=== PATIENT | male | born 2005 | race Caucasian/White ===

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

== ENCOUNTER 2024-12-15 08:46 | Outpatient (CLI) | payer OTHER, SELFPAY ==
--- NOTE | ~2024-12-15 | XR_ITS ---
PA, oblique, and lateral views of the right third finger Clinical history: Injury FINDINGS: There is small acute avulsion fracture from the radial aspect of the base of the third midd le phalanx, which is mildly displaced. No other fracture or dislocation seen. Joint spaces are grossl y preserved. There is mild soft tissue swelling about the fracture site. IMPRESSION: Small acute avulsion fracture at the radial aspect of the base of the third middle phalanx. Reviewed, dictated and finalized at location . IMPRESSION: Small acute avulsion fracture at the radial aspect of the base of the third mid dle phalanx.
--- OUTSIDE RECORDS SUMMARY | 2024-12-15 08:51 | XMS_ITS | Clinical Summary ---
Author Organization [facility] Address [facility] [place] [address] Care Team Providers Care Clay Press Operator Name Role Phone Kylah Salvador MD Primary Care Provider [phone] Twin Mckeon MD Unavailable [phone] Allergies No known active allergies Medications No known medications Active Problems No known active problems Immunizations Immunization Administration Dates Next Due Dtap (Generic) 06/23/2009,09/02/2005 HPV GARDASIL 9-VALENT 12/01/2017,01/19/2016 Hepatitis A 06/16/2007,12/13/2005 Hib 09/02/2005,2004,2004 MENINGOCOCCAL A C Y&W-135 oligosaccharide (MENVEO) 01/19/2016 MMR 06/23/2009,06/12/2005 Menactra 02/26/2021 Pediarix 2004,2004,2004 Pneumococcal (Prevnar 7) 06/12/2005,10/2004,2004,06/2004 Polio Ipv (Generic) 06/23/2009 Tdap (Generic) 01/19/2016 Varicella Vaccine 06/23/2009,06/12/2005 Family History Medical History Relation Comments No Known Problems Father No Known Problems Mother Relation Status Comments Father Alive Mother Alive Social History Tobacco Use Types Packs/Day Years Used Date Smoking Tobacco: Never Smokeless Tobacco: Never Tobacco Cessation:Counseling Given: No Alcohol Use Standard Drinks/Week Comments Never 0 (1 standard drink = 0.6 oz pur e alcohol) AUDIT-C Answer Date Recorded Q1: How often do you have a drink containing alc ohol? Never 07/27/2020 Average Number of Drinks Not on file 021 Frequency of Binge Drinking Not on file 07/10 PHQ-2 Answer Date Recorded PHQ-2 Score - If the patient scores above 3, please move on to questions 3-9 0 03/09/2021 Sex and Gender Information Value Date Recorded Sex Assigned at Not on file Legal Sex Male 5:43 PM CDT Gender Identity Not on file Sexual Orientation Not on file Last Filed Vital Signs Vital Sign Reading Time Taken Comments Blood Pressure 136/85 04/06/2022 10:08 AM CDT Pulse 75 04/06/2022 10:08 AM CDT Temperature 36.2 C (97.2 F) 04/06/2022 10:08 AM CDT Respiratory Rate 20 04/06/2022 10:08 AM CDT Oxygen Saturation 99% 04/06/2022 10:08 AM CDT Inhaled Oxygen Concentration - - Weight 88 kg (194 lb) 04/06/2022 10:08 AM CDT Height 177.8 cm (5' 10) 04/06/2022 10:08 AM CDT Body Mass Index 27.84 04/06/2022 10:08 AM CDT Plan of Treatment Health Maintenance Due Date Last Done Comments Annual Physical 2007 Meningococcal B Vaccine (1 of 2 - Standard) 2020 Hepatitis C 2022 COVID-19 Vaccine ( - season) 2024 DTaP, Tdap and Td Vaccines (7 - Td or Tdap) 01/18/2026 01/19/2016, 06/23/2009, 09/02/2005, Additional history exists Hepatitis B Vaccines Completed 2004, 2004, 2004 Pneumococcal Vaccine: Pediatrics (0 to 5 Years) and At-Risk Patients (6 to 49 Years) Aged Out 06/12/2005, 2004, 2004, Additional history exists No longer eligible based on patient's age to complete this topic HPV Vaccines Completed 12/01/2017, 01/19/2016 Meningococcal Vaccine Completed 02/26/2021, 016 RSV Immunizations Under 20 Months Aged Out No longer eligible based on patient's age to complete this topic Insurance [employer] Care Teams Clay Press Operator Relationship Specialty Start Date End Date Kylah Salvador MD [address] [facility] [address] [place] [address] PCP - General PEDIATRICS 03/19/22 Twin Mckeon MD [address] [address] FAMILY PRACTICE 03/19/22
--- OUTSIDE RECORDS SUMMARY | 2024-12-15 08:51 | XMS_ITS | Clinical Summary ---
Author Organization [facility] Address [address] [place] [address] Care Team Providers Care Trash Collector Truck Driver Name Role Phone Kylah Salvador MD Primary Care Provider [phone] Source Comments [facility],non-owned Affiliates and Associated Physician Practices is amultiple site organization consisting of ambulatory clinics and hospital sitesin [place], [place], [place] and [place]. This disclosure is being madepursuant to the Care Everywhere program and may not contain all information available regarding this patient. Last updated 18.[facility] Allergies No known active allergies Medications * Be aware that medications may not be up to date on this document. Alwaysverify current medications with the patient. No known medications Active Problems Patient Care Coordination No te Formatting of this note migh t be different from the original. Do you have any cultural preferences or concerns? No 03/26/22 Problem Noted Date Diagnosed Date Closed nondisplaced fracture of shaft of second metacarpal bone of left hand 04/08/2022 Closed displaced fracture of proximal phalanx of left index finger 04/08/2022 Closed displaced fracture of proximal phalanx of left middle finger 04/08/2022 Closed fracture of nasal bone 03/26/2022 Social History Tobacco Use Types Packs/Day Years Used Date Smoking Tobacco: Never Smokeless Tobacco: Never Tobacco Cessation:Counseling Given: Not Answered Alcohol Use Standard Drinks/Week Comments Never 0 (1 standard drink = 0.6 oz pur e alcohol) Sex and Gender Information Value Date Recorded Sex Assigned at Not on file Legal Sex Male 8:20 AM CDT Gender Identity Not on file Sexual Orientation Not on file Last Filed Vital Signs Vital Sign Reading Time Taken Comments Blood Pressure - - Pulse - - Temperature - - Respiratory Rate - - Oxygen Saturation - - Inhaled Oxygen Concentration - - Weight 85.9 kg (189 lb 6 oz) 01/16/2023 12:50 PM CDT Height 178 cm (5' 10.08) 12/09/2022 10:06 AM CD T Body Mass Index 27.11 12/09/2022 10:06 AM CDT Plan of Treatment Health Maintenance Due Date Last Done Comments HIV SCREENING 2019 HPV VACCINE (1 - Male 3-dose series) 2019 MENINGOCOCCAL (Group B) VACC INE SHARED DECISION-MAKING (1 of 2 - Standard) 2020 HEPATITIS C SCREENING 06/02/2022 DTAP/TDAP/TD VACCINES (1 - Tdap) 2023 HEPATITIS B VACCINE (1 of 3 - 19+ 3-dose series) 2023 COVID-19 VACCINE (1 - 2023-2 5 season) 2024 DEPRESSION SCREENING 06/09/2024 INFLUENZA VACCINE (#1) 2025 ZOSTER VACCINE (1 of 2) 2054 HIB VACCINE Aged Out No longer eligi ble based on patient's age to complete this topic MENINGOCOCCAL GROUPS A/C/Y/W VACCINE Aged Out No longer eligible b ased on patient's age to complete this topic PNEUMOCOCCAL VACCINE Aged Out No long er eligible based on patient's age to complete this topic Insurance [employer] Care Teams Trash Collector Truck Driver Relationship Specialty Start Date End Date Kylah Salvador MD [address] [facility] [address] [place] [address] PCP - General Pediatrics 03/26/22
== END 2024-12-15 08:47 | disposition home or self-care (01) ==
PROVIDERS: PCP Family Medicine; Visit Provider Nurse Practitioner Family
DX: S62.623A Displaced fracture of middle phalanx of left middle finger, initial encounter for closed fracture (principal); X58.XXXA Exposure to other specified factors, initial encounter
CPT/HCPCS: 73140